=== PATIENT | male | born 1980 | race Two or more races ===

== ENCOUNTER 2017-11-12 07:15 | Emergency (ER) | payer OTHER ==
[2017-11-12 07:52] VITALS: TEMP 99; BMI 25.7
--- NOTE | 2017-11-12 07:58 | PDOC ---
Attending Attestation - Resident Resident Name: Lucinda Cerda - ED Attending Attestation I have performed the following: I have examined & evaluated the patient, The case was reviewed & discussed with the resident, I agree w/resident's findings & plan, Exceptions are as noted - HPI HPI: 11/12/17 08:01 37y M no pmhx presents with diarrhea. Pt recently came [place] from the [place] sun[place] vi[place]iting [place]), was fine until sun when he had some LLQ pain radiating to the back that resolved that day, thne he started having multiple episodes of watery green diarrhea marcie twas non bloody and nonmelanotic - no abd pain, fever/chills, nv. Pt notes that his son had similar sypmtoms in that has since resolved. GENERAL: The patient is awake, alert, and fully oriented, Nontoxic - in no acute distress. HEAD: Normocephalic, atraumatic. EYES: extraocular movements intact, sclera anicteric, conjunctiva clear. ENT: Normal voice, Moist mucous membranes. NECK: Normal range of motion, supple LUNGS: Breath sounds equal, clear to auscultation bilaterally. No wheezes, no rhonchi, no rales. HEART: Regular rate and rhythm, normal S1 and S2 without murmur, rub or gallop. ABDOMEN: Soft, nontender No guarding, no rebound. . No CVA tenderness EXTREMITIES: Normal range of motion, no edema. NEUROLOGICAL: No facial assymetry, Normal speech, PSYCH: Normal mood, normal affect. SKIN: Warm, Dry, normal turgor, - Medical Decision Making 11/12/17 08:43 suspect diarrhea, probable viral no systemic complaints abd soft nontender will ck labs fluids for hydration will ck ua to r/o kidney stone
--- NOTE | 2017-11-12 08:10 | PDOC ---
History of Present Illness - General Chief Complaint: Pain, Acute Stated Complaint: ABDOMINAL PAIN Time Seen by Provider: 11/12/17 07:50 - History of Present Illness Initial Comments: 11/12/17 08:05 37 year old man w a history of kidney stones who presents with watery nonbloody diarrhea after recent travel to the [place] and returning on . The patient notes that he initially had mid abdominal pain and back pain that resolved but now has had 4 days of diarrhea. He reports that his son has had diarrhea while in the [place] as well but the son's diarrhea has since resolved. The patient denies fevers, chest pain, shortness of breath, headache, and abdominal pain. PMHX: none PSHX: none Tob: none Etoh: none Meds: none Allergies: NKDA Past History - Past Medical History Allergies/Adverse Reactions: Allergies Allergy/AdvReac Type Severity Reaction Status Date / Time No Known Allergies Allergy Verified 11/12/17 08:11 COPD: No Kidney Stones: Yes - Surgical History Appendectomy: Yes - Immunization History Td Vaccination: No TDAP Vaccination: No Immunization Up to Date: No - Suicide/Smoking/Psychosocial Hx Smoking History: Never smoked Have you smoked in the past 12 months: No Hx Alcohol Use: No Drug/Substance Use Hx: No Substance Use Type: None Hx Substance Use Treatment: No Review of Systems - Review of Systems Able to Perform ROS?: Yes Is the patient limited Turkmen proficient: No Constitutional: No: Chills, Diaphoresis, Fever HEENTM: No: Blurred Vision, Tinnitus Respiratory: No: Cough, Orthopnea, Shortness of Breath Cardiac (ROS): No: Chest Pain, Palpitations, Chest Tightness ABD/GI: Yes: Diarrhea. No: Constipated, Nausea, Rectal Bleeding, Vomiting Musculoskeletal: No: Back Pain Neurological: No: Headache, Numbness, Paresthesia, Tingling *Physical Exam - Vital Signs Last Vital Signs Temp Pulse Resp BP Pulse Ox 99.0 F 74 18 130/82 0 L 11/12/17 07:42 11/12/17 07:42 11/12/17 07:42 11/12/17 07:42 11/12/17 07:42 - Physical Exam Comments: 11/12/17 08:14 GENERAL: Awake, alert, and fully oriented, in no acute distress HEAD: No signs of trauma, normocephalic, atraumatic EYES:EOMI, sclera anicteric, conjunctiva clear ENT: oropharynx clear without exudates. Moist mucosa NECK: Normal ROM, supple, no lymphadenopathy, JVD, or masses LUNGS: No distress, speaks full sentences, clear to auscultation bilaterally HEART: Regular rate and rhythm, normal S1 and S2, no murmurs, rubs or gallops, peripheral pulses normal and equal bilaterally. ABDOMEN: Soft, nontender to palpation, normoactive bowel sounds. No guarding, no rebound. No masses BACK: no CVA tenderness bilaterally EXTREMITIES : Normal inspection, Normal range of motion, no edema. No clubbing or cyanosis. NEUROLOGICAL: Normal speech, normal gait, no focal sensorimotor deficits SKIN: Warm, Dry, normal turgor, no rashes or lesions noted ED Treatment Course - LABORATORY CBC & Chemistry Diagram: 11/12/17 08:00 11/12/17 08:00 Medical Decision Making - Medical Decision Making 11/12/17 08:17 37 year old man w. past medical history of kidney stones who presents with watery nonbloody diarrhea after recent travel to the [place] and returning on 11/03/17. The patient's [place] had [place] The patient's symptoms and history are most concerning for traveller's diarrhea vs nephrolithiasis. 11/12/17 09:42 Patient was reassessed and found to be stable and feeling better at bedside. Patient informed of some blood in urine and given referral to PCP. He was given strict return precautions and agrees with plan. *DC/Admit/Observation/Transfer Diagnosis at time of Disposition: Travelers' diarrhea - Discharge Dispostion Disposition: HOME Condition at time of disposition: Stable Decision to Admit order: No - Referrals Referrals: [facility] [place] [Provider Group] - Patient Instructions Additional Instructions: You were seen in the ED for complaint of diarrhea. You were evaluated with labwork and treated symptomatically in the ED. You were informed of your lab results. You were given a referral to a PCP and advised to follow up with in 1-2 weeks. - Post Discharge Activity
[2017-11-12] MEDS ORDERED: SODIUM CHLORIDE 1,000 ML IV SCH (08:15)
[2017-11-12 08:16] LABS: BASO % 0.3 % (0-2.0); EOS % 1.5 % (0-4.5); HEMATOCRIT 45.8 % (35.4-49); LYMPH % 18.4 % (8-40); MCH 31.3 pg (25.7-33.7); MCHC 34.9 g/dl (32.0-35.9); MEAN CELL VOLUME 89.6 fl (80-96); MEAN PLT VOLUME 7.3 fl (7.5-11.1); MONO % 12.8 % (3.8-10.2); PLATELET COUNT 165 K/MM3 (134-434); RBC 5.11 M/mm3 (4.00-5.60); RDW 12.6 % (11.9-15.9); WHITE BLOOD COUNT 4.6 K/mm3 (4.0-10.0)
[2017-11-12 08:37] LABS: ALBUMIN 4.2 g/dl (3.4-5.0); ANION GAP 5 (8-16); BLOOD UREA NITROGEN 13 mg/dL (7-18); CHLORIDE 110 mmol/L (98-107); CO2 26 mmol/L (21-32); GLUCOSE,RANDOM 98 mg/dL (74-106); SODIUM 141 mmol/L (136-145)
[2017-11-12 08:41] LABS: BILIRUBIN,TOTAL 1.7 mg/dL (0.2-1.0); CREATININE 0.9 mg/dL (0.7-1.3); SGOT/AST 26 U/L (15-37); SGPT/ALT 56 U/L (12-78); TOT PROT 6.9 g/dl (6.4-8.2)
[2017-11-12 08:42] LABS: ALK PHOS 96 U/L (45-117)
[2017-11-12 08:55] LABS: URINE APPEARANCE CLEAR; URINE BILIRUBIN NEGATIVE (<2.0 mg/dL); URINE COLOR YELLOW; URINE GLUCOSE (UA) NEGATIVE (NEGATIVE); URINE KETONE NEGATIVE (NEGATIVE); URINE LEUK ESTERASE NEGATIVE (NEGATIVE); URINE NITRITE NEGATIVE (NEGATIVE); URINE PROTEIN NEGATIVE (NEGATIVE); URINE UROBILINOGEN NEGATIVE mg/dL (0.2-1.0)
[2017-11-12 09:00] LABS: URINE MUCUS RARE
[2017-11-12 10:04] VITALS: BP 110/70; PULSE 50
== END 2017-11-12 10:04 | disposition home or self-care (01) ==
LOC: JER 07:15
PROC: 3E0337Z Introduction of Electrolytic and Water Balance Substance into Peripheral Vein, Percutaneous Approach (ICD-10-PCS; principal; 2017-11-12)
DX: A09 Infectious gastroenteritis and colitis, unspecified (principal)
CPT/HCPCS: 36415; 80053; 81003; 81015; 85025; 87086; 99284-25; J7030

== ENCOUNTER 2018-04-23 20:19 | Emergency (ER) | payer OTHER ==
--- NOTE | 2018-04-23 20:41 | PDOC ---
Rapid Medical Evaluation Chief Complaint: Pain, Acute Time Seen by Provider: 04/23/18 20:39 Medical Evaluation: Allergies Allergy/AdvReac Type Severity Reaction Status Date / Time No Known Allergies Allergy Verified 11/12/17 08:11 04/23/18 20:40 I performed a brief in person evaluation. CC: Left flank pain HPI: Pt is a 38 Yo male with a hx of kidney stones and began with left flank pain x 1 day. PE: Skin: Clear Lungs: Clear Heart: RRR MS: Moves all extremities without difficulty Neuro: Alert Psych: Appropriate affect Basic labs ordered with urine Pt will go to main ED for further evaluation. Discharge Disposition - Diagnosis Kidney stone on left side - Referrals - Patient Instructions - Post Discharge Activity
[2018-04-23 20:42] VITALS: BP 145/89; PULSE 79; TEMP 98.9; BMI 29.5
[2018-04-23 21:07] LABS: BASO % 0.4 % (0-2.0); EOS % 1.6 % (0-4.5); HEMATOCRIT 43.7 % (35.4-49); HEMOGLOBIN 15.6 GM/dL (11.7-16.9); LYMPH % 37.3 % (8-40); MCH 31.8 pg (25.7-33.7); MCHC 35.7 g/dl (32.0-35.9); MEAN CELL VOLUME 88.9 fl (80-96); MEAN PLT VOLUME 7.5 fl (7.5-11.1); MONO % 7.2 % (3.8-10.2); NEUT % 53.5 % (42.8-82.8); PLATELET COUNT 212 K/MM3 (134-434); RBC 4.91 M/mm3 (4.00-5.60); RDW 12.5 % (11.9-15.9); WHITE BLOOD COUNT 5.3 K/mm3 (4.0-10.0)
[2018-04-23 21:26] LABS: ALBUMIN 4.1 g/dl (3.4-5.0); ALK PHOS 123 U/L (45-117); ANION GAP 8 MMOL/L (8-16); BILIRUBIN,TOTAL 0.9 mg/dL (0.2-1); BLOOD UREA NITROGEN 17 mg/dL (7-18); CALCIUM 9.1 mg/dL (8.5-10.1); CHLORIDE 107 mmol/L (98-107); CO2 26 mmol/L (21-32); CREATININE 0.9 mg/dL (0.55-1.3); GLUCOSE,RANDOM 126 mg/dL (74-106); POTASSIUM 3.8 mmol/L (3.5-5.1); SGOT/AST 32 U/L (15-37); SGPT/ALT 59 U/L (13-61); SODIUM 141 mmol/L (136-145); TOT PROT 6.8 g/dl (6.4-8.2)
[2018-04-23] MEDS ORDERED: ONDANSETRON 4 MG/2 ML VIAL IVPUSH ONE (21:33)
--- NOTE | 2018-04-23 21:38 | PDOC ---
History of Present Illness - General History Source: Patient Exam Limitations: No Limitations - History of Present Illness Initial Comments: 04/23/18 22:03 The patient is a 38 year old male, with a significant past medical history of kidney stones (s/p ureteral stent and lithotripsy), who presents to the emergency department with, left sided flank pain radiating to the groin with associated nausea without emesis. Patient notes a similar episode in November due to a kidney stone. He endorses taking oxycodone without relief, prompting his visit to the ER. While in the ER, the patient notes he think he passed something in his urine. He denies any recent fevers, chills, headache or dizziness. He denies any recent vomit, diarrhea or constipation. He denies any recent chest pain or shortness of breath. He denies any recent dysuria, frequency, urgency or hematuria. Allergies: NKDA Past surgical history: Appendectomy. Social History: Nonsmoker. Denies EtOH use and recreational drug use. <Ray Dominguez - Last Filed: 04/23/18 22:03> <Prudence Pierre - Last Filed: 04/23/18 23:34> - General Chief Complaint: Pain, Acute Stated Complaint: PAIN Time Seen by Provider: 04/23/18 20:39 Past History <Ray Dominguez - Last Filed: 04/23/18 22:03> - Past Medical History COPD: No Kidney Stones: Yes - Surgical History Appendectomy: Yes - Immunization History Td Vaccination: No TDAP Vaccination: No Immunization Up to Date: No - Suicide/Smoking/Psychosocial Hx Smoking History: Never smoked Have you smoked in the past 12 months: No Information on smoking cessation initiated: No Hx Alcohol Use: No Drug/Substance Use Hx: No Substance Use Type: None Hx Substance Use Treatment: No <Prudence Pierre - Last Filed: 04/23/18 23:34> - Past Medical History Allergies/Adverse Reactions: Allergies Allergy/AdvReac Type Severity Reaction Status Date / Time No Known Allergies Allergy Verified 04/23/18 20:42 Review of Systems - Review of Systems Able to Perform ROS?: Yes Comments:: 04/23/18 22:10 CONSTITUTIONAL: Absent: fever, no chills, no fatigue EYES: Absent: visual changes ENT: Absent: ear pain, no sore throat CARDIOVASCULAR: Absent: chest pain, no palpitations RESPIRATORY: Absent: cough, no SOB GI: Present: Nausea. Absent: no vomiting, no constipation, no diarrhea GENITOURINARY: Present: Left flank pain radiating to the groin. Absent: dysuria, no frequency, no hematuria MUSKULOSKELETAL: Absent: back pain, no arthralgia, no myalgia SKIN: Absent: rash NEURO: Absent: headache <Ray Dominguez - Last Filed: 04/23/18 22:03> *Physical Exam - Vital Signs Last Vital Signs Temp Pulse Resp BP Pulse Ox 98.9 F 79 18 145/89 96 04/23/18 20:40 04/23/18 20:40 04/23/18 20:40 04/23/18 20:40 04/23/18 20:40 - Physical Exam Comments: 04/23/18 22:11 GENERAL: Well-appearing, well-nourished. No apparent distress. HEENT: Normocephalic, atraumatic. PERRL, EOM intact. CARDIOVASCULAR: Normal S1, S2. Regular rate and rhythm. PULMONARY: Clear to auscultation bilaterally. +ABDOMEN/BACK: Left back pain radiating to the flank. Soft, non-distended. EXTREMITIES: Normal ROM in all four extremities. No gross deformities. SKIN: Warm, dry. No rash NEUROLOGICAL: No focal neurological deficits. <Ray Dominguez - Last Filed: 04/23/18 22:03> - Vital Signs Last Vital Signs Temp Pulse Resp BP Pulse Ox 98.9 F 79 18 145/89 96 04/23/18 20:40 04/23/18 20:40 04/23/18 20:40 04/23/18 20:40 04/23/18 20:40 <Prudence Pierre - Last Filed: 04/23/18 23:34> Moderate Sedation - Procedure Monitoring Vital Signs: Procedure Monitoring Vital Signs Temperature 98.9 F 04/23/18 20:40 Pulse Rate 79 04/23/18 20:40 Respiratory Rate 18 04/23/18 20:40 Blood Pressure 145/89 04/23/18 20:40 O2 Sat by Pulse Oximetry (%) 96 04/23/18 20:40 <Ray Dominguez - Last Filed: 04/23/18 22:03> - Procedure Monitoring Vital Signs: Procedure Monitoring Vital Signs Temperature 98.9 F 04/23/18 20:40 Pulse Rate 79 04/23/18 20:40 Respiratory Rate 18 04/23/18 20:40 Blood Pressure 145/89 04/23/18 20:40 O2 Sat by Pulse Oximetry (%) 96 04/23/18 20:40 <Prudence Pierre - Last Filed: 04/23/18 23:34> ED Treatment Course - LABORATORY CBC & Chemistry Diagram: 04/23/18 20:50 04/23/18 20:50 - ADDITIONAL ORDERS Additional order review: Laboratory Results 04/23/18 20:50 Sodium 141 Potassium 3.8 Chloride 107 Carbon Dioxide 26 Anion Gap 8 BUN 17 Creatinine 0.9 Creat Clearance w eGFR > 60 Random Glucose 126 H Calcium 9.1 Total Bilirubin 0.9 AST 32 ALT 59 Alkaline Phosphatase 123 H Total Protein 6.8 Albumin 4.1 04/23/18 20:50 RBC 4.91 MCV 88.9 MCHC 35.7 RDW 12.5 MPV 7.5 Neutrophils % 53.5 D Lymphocytes % 37.3 D Monocytes % 7.2 Eosinophils % 1.6 Basophils % 0.4 <Ray Dominguez - Last Filed: 04/23/18 22:03> - LABORATORY CBC & Chemistry Diagram: 04/23/18 20:50 04/23/18 20:50 - ADDITIONAL ORDERS Additional order review: Laboratory Results 04/23/18 20:50 Sodium 141 Potassium 3.8 Chloride 107 Carbon Dioxide 26 Anion Gap 8 BUN 17 Creatinine 0.9 Creat Clearance w eGFR > 60 Random Glucose 126 H Calcium 9.1 Total Bilirubin 0.9 AST 32 ALT 59 Alkaline Phosphatase 123 H Total Protein 6.8 Albumin 4.1 04/23/18 20:50 RBC 4.91 MCV 88.9 MCHC 35.7 RDW 12.5 MPV 7.5 Neutrophils % 53.5 D Lymphocytes % 37.3 D Monocytes % 7.2 Eosinophils % 1.6 Basophils % 0.4 <Prudence Pierre - Last Filed: 04/23/18 23:34> Medical Decision Making - Medical Decision Making 04/23/18 22:17 38-year-old male with a history of kidney stones presents with left flank pain that started on Sunday become much worse this evening. He is able to urinate and denies fever or vomiting. CBC is within normal limits with no evidence of anemia, leukocytosis Chemistries unremarkable with exception of a glucose slightly elevated at 126 Renal ultrasound showed a left nephrolithiasis with no evidence of hydronephrosis or obstructive uropathy. Patient is able to urinate 04/23/18 22:45 Patient saw a stone in his urine sample and the nurse strained the urine and found a 4 mm kidney stone 04/23/18 23:16 imp Flank pain resolved/kidney stones/recently passed, patiejnt discharged home <Prudence Pierre - Last Filed: 04/23/18 23:34> *DC/Admit/Observation/Transfer - Attestations Scribe Attestion: 04/23/18 22:12 Documentation prepared by Ray Dominguez, acting as medical billing service for Prudence Pierre MD. <Ray Dominguez - Last Filed: 04/23/18 22:03> <Prudence Pierre - Last Filed: 04/23/18 23:34> Diagnosis at time of Disposition: Kidney stone on left side - Discharge Dispostion Disposition: HOME Condition at time of disposition: Stable - Referrals Referrals: Joe Oliav MD [Staff Physician] - Aaron Rios MD [Staff Physician] - - Patient Instructions Printed Discharge Instructions: DI for Kidney Stones Additional Instructions: You passed a kidney stone. There are stones in the kidney and you should see a urologist if you develop further symptoms.
[2018-04-23] MEDS ORDERED: ONDANSETRON 4 MG/2 ML VIAL ONE (22:45)
[2018-04-23 23:01] LABS: URINE APPEARANCE SLCLOUDY; URINE BILIRUBIN NEGATIVE (<2.0 mg/dL); URINE COLOR YELLOW; URINE GLUCOSE (UA) NEGATIVE (NEGATIVE); URINE KETONE NEGATIVE (NEGATIVE); URINE LEUK ESTERASE NEGATIVE (NEGATIVE); URINE NITRITE NEGATIVE (NEGATIVE); URINE PROTEIN 2+ (NEGATIVE)
[2018-04-23 23:21] LABS: CALCIUM OXALATE CRYSTALS FEW /hpf (NONE SEEN); EPI CELLS RARE /HPF (FEW); URINE MUCUS FEW
== END 2018-04-24 00:07 | disposition home or self-care (01) ==
LOC: JER 20:19
DX: N20.0 Calculus of kidney (principal); Z87.442 Personal history of urinary calculi
CPT/HCPCS: 36415; 76775-TC; 80053; 81003; 81015; 85025; 87086; 99282-25

== ENCOUNTER 2019-05-10 05:14 | Emergency (ER) | payer OTHER ==
[2019-05-10 05:43] VITALS: BMI 28.3
[2019-05-10] MEDS ORDERED: ACETAMINOPHEN 325 MG TABLET (FP) ONE (05:50)
[2019-05-10] MEDS ORDERED: ACETAMINOPHEN 500 MG TABLET (FP) PO ONE (07:17)
[2019-05-10] MEDS ORDERED: KETOROLAC TROMETHAMINE 30 MG/1 ML VIAL IM ONE (07:25)
[2019-05-10] MEDS ORDERED: DEXAMETHASONE SOD PHOSPHATE 10 MG/1 ML VIAL IM ONE (07:25)
[2019-05-10] MEDS ORDERED: KETOROLAC TROMETHAMINE 30 MG/1 ML VIAL ONE (07:40)
[2019-05-10] MEDS ORDERED: DEXAMETHASONE SOD PHOSPHATE 10 MG/1 ML VIAL ONE (07:40)
--- NOTE | 2019-05-10 08:26 | PDOC ---
History of Present Illness - General Chief Complaint: Sore Throat Stated Complaint: SORE THROAT Time Seen by Provider: 05/10/19 07:06 History Source: Patient Exam Limitations: No Limitations - History of Present Illness Initial Comments: 05/10/19 08:25 Patient is a 39M with history of urolithiasis s/p stenting here today complaining of fever, bodyaches, rhinorrhea, sore throat and cough. Patient endorses multiple sick contacts in family, no known diagnosis for any of them. Patient denies chest pain, shortness of breath, abdominal pain, dysuria. Fully vaccinated as child. No foreign travel. Patient's main concern is that his throat is very sore when he coughs. Past History - Past Medical History Allergies/Adverse Reactions: Allergies Allergy/AdvReac Type Severity Reaction Status Date / Time No Known Allergies Allergy Verified 05/10/19 05:42 Home Medications: Ambulatory Orders NK [No Known Home Medication] 05/10/19 COPD: No Kidney Stones: Yes - Surgical History Appendectomy: Yes - Immunization History Td Vaccination: No TDAP Vaccination: No Immunization Up to Date: Yes - Psycho Social/Smoking Cessation Hx Smoking History: Never smoked Have you smoked in the past 12 months: No Information on smoking cessation initiated: No Hx Alcohol Use: No Drug/Substance Use Hx: No Substance Use Type: None Hx Substance Use Treatment: No Review of Systems - Review of Systems Able to Perform ROS?: Yes Comments:: 05/10/19 08:38 GENERAL/CONSTITUTIONAL: +fever +chills. No weakness. HEAD, EYES, EARS, NOSE AND THROAT: No change in vision. + sore throat. CARDIOVASCULAR: No chest pain or shortness of breath RESPIRATORY: +cough, no wheezing, or hemoptysis. GASTROINTESTINAL: No nausea, vomiting, diarrhea or constipation. GENITOURINARY: No dysuria, frequency, or change in urination. MUSCULOSKELETAL: No joint or muscle swelling or pain. No neck or back pain. SKIN: No rash NEUROLOGIC: No headache, vertigo, loss of consciousness, or change in strength/ sensation. ENDOCRINE: No increased thirst. No abnormal weight change ALLERGIC/IMMUNOLOGIC: No hives or skin allergy. *Physical Exam - Vital Signs Last Vital Signs Temp Pulse Resp BP Pulse Ox 102.6 F H 102 H 22 H 112/67 96 05/10/19 07:05 05/10/19 07:05 05/10/19 07:05 05/10/19 07:05 05/10/19 07:05 - Physical Exam 05/10/19 08:40 GENERAL: Awake, alert, and fully oriented, in no acute distress HEAD: No signs of trauma, normocephalic, atraumatic EYES: PERRLA, EOMI, sclera anicteric, conjunctiva clear ENT: Auricles normal inspection, hearing grossly normal, nares patent, oropharynx erythematous without exudates. NECK: Normal ROM, supple, no lymphadenopathy, JVD, or masses LUNGS: No distress, speaks full sentences, clear to auscultation bilaterally HEART: Regular rate and rhythm, normal S1 and S2, no murmurs, rubs or gallops, peripheral pulses normal and equal bilaterally. ABDOMEN: Soft, nontender, normoactive bowel sounds. No guarding, no rebound. No masses EXTREMITIES: Normal inspection, Normal range of motion, no edema. No clubbing or cyanosis. NEUROLOGICAL: Cranial nerves II through XII grossly intact. Normal speech, normal gait, no focal sensorimotor deficits SKIN: Warm, Dry, normal turgor, no rashes or lesions noted. ED Treatment Course - Medications Given in the ED: ED Medications Discontinued Medications Generic Name Dose Route Start Last Admin Trade Name Freq PRN Reason Stop Dose Admin Acetaminophen 975 mg 05/10/19 07:17 05/10/19 06:30 Tylenol - PO 05/10/19 07:18 975 mg ONCE ONE Administration Dexamethasone Sodium Phosphate 10 mg 05/10/19 07:25 05/10/19 07:44 Decadron Injection - IM 05/10/19 07:26 10 mg ONCE ONE Administration Ketorolac Tromethamine 30 mg 05/10/19 07:25 05/10/19 07:44 Toradol Injection - IM 05/10/19 07:26 30 mg ONCE ONE Administration Medical Decision Making - Medical Decision Making 05/10/19 08:40 Patient is 39M here today with flu-like symptoms. Vitals notable for fever and tachycardia, patient is non-toxic appearing. Flu positive. Given tylenol and toradol for fever and bodyaches. Given dexamethasone for sore throat. Patient has improved. Vitals improved. Will discharge home with return precautions. Discharge - Discharge Information Problems reviewed: Yes Clinical Impression/Diagnosis: Influenza B Condition: Improved Disposition: HOME - Admission No - Follow up/Referral - Patient Discharge Instructions Patient Printed Discharge Instructions: DI for Influenza -- Adult Additional Instructions: Please return if you have any new, worsening or concerning symptoms, especially difficulty breathing. Please follow up with your primary care doctor this week. - Post Discharge Activity Work/Back to School Note: Back to Work
--- NOTE | 2019-05-10 08:35 | PDOC ---
Attending Attestation - Resident Resident Name: Ignacio Arias - ED Attending Attestation I have performed the following: I have examined & evaluated the patient, The case was reviewed & discussed with the resident, I agree w/resident's findings & plan, Exceptions are as noted - HPI HPI: 05/10/19 08:37 39yo male with sore throat, rhinorrhea, body aches x 4 days. Fevers and chills. Pt denies n/v/d or abd pain. Pt states he did not get the flu vaccine this year. - Physicial Exam PE: 05/10/19 08:38 Gen: aaox3, febrile, tachy heent: rhinorrhea, erythema to posterior pharynx lungs: cta b/l heart: +s1s2 tachy abd: soft, nt/nd +bs ext: no c/c/e - Medical Decision Making 05/10/19 08:38 a/p: 39yo male with rhinorrhea, sore throat, fevers -pt with flu like symptoms -pt febrile -tylenol give, will also give toradol, decadron for sore throat -pt flu B + -strep neg -no foreign travel -pt works at a [employer] -4 days into symptoms -needs fever control, po intake -pt is not a candidate for tamiflu given duration of symptoms -will need work note -repeat vs after tylenol, toradol, decadron, no longer tachy or febrile -stable for dc to home -discussed prevention precautions at home to stop spread of flu
[2019-05-10 08:40] VITALS: BP 100/63; PULSE 86; TEMP 100
== END 2019-05-10 08:57 | disposition home or self-care (01) ==
LOC: JER 05:14
PROC: 3E0233Z Introduction of Anti-inflammatory into Muscle, Percutaneous Approach (ICD-10-PCS; principal; 2019-05-10)
PROC: 3E0233Z Introduction of Anti-inflammatory into Muscle, Percutaneous Approach (ICD-10-PCS; 2019-05-10)
DX: J10.1 Influenza due to other identified influenza virus with other respiratory manifestations (principal); Z87.442 Personal history of urinary calculi; Z96.0 Presence of urogenital implants
CPT/HCPCS: 87070; 87804; 87880; 99283-25; J1100

== ENCOUNTER 2022-04-22 00:13 | Emergency (ER) | payer OTHER ==
[2022-04-22] MEDS ORDERED: TAMSULOSIN HCL 0.4 MG CAP PO ONE (00:21)
[2022-04-22] MEDS ORDERED: IBUPROFEN 600 MG TABLET (FP) PO ONE ×2 (00:21→00:32)
[2022-04-22 00:25] VITALS: BP 121/84; PULSE 60; RESP 16; TEMP 98.5; BMI 35.5
[2022-04-22] MEDS ORDERED: TAMSULOSIN HCL 0.4 MG CAP ONE (00:32)
[2022-04-22 01:34] LABS: EPI CELLS 5 /uL (0-25.1); HYALINE CASTS 1 /uL (0-3.1); PH,URINE 5.5 (5.0-8.0); URINE APPEARANCE CLEAR; URINE BACTERIA 14 /uL (0-1359); URINE BILIRUBIN NEGATIVE (NEGATIVE); URINE COLOR YELLOW; URINE GLUCOSE (UA) NEGATIVE (NEGATIVE); URINE KETONE NEGATIVE (NEGATIVE); URINE LEUK ESTERASE NEGATIVE (NEGATIVE); URINE NITRITE NEGATIVE (NEGATIVE); URINE PROTEIN NEGATIVE (NEGATIVE); URINE RBC 850 /uL (0-23.9); URINE UROBILINOGEN 0.2 mg/dL (0.2-1.0); URINE WBC 6 /uL (0-25.8)
== END 2022-04-22 02:04 | disposition home or self-care (01) ==
LOC: FER 00:13
DX: N20.1 Calculus of ureter (principal); N23 Unspecified renal colic
CPT/HCPCS: 74176-TC; 81003; 99285-25

== ENCOUNTER 2023-01-29 20:38 | Emergency (ER) | payer OTHER ==
[2023-01-29] MEDS ORDERED: KETOROLAC TROMETHAMINE 60 MG/2 ML VIAL IM ONE (21:35)
[2023-01-29 21:43] VITALS: TEMP 98; BMI 32.3
[2023-01-29 21:48] LABS: HEMATOCRIT 45.9 % (35.4-49); HEMOGLOBIN 15.8 G/dL (11.7-16.9); MCH 32.2 pg (25.7-33.7); MCHC 34.4 g/dl (32.0-35.9); MEAN CELL VOLUME 93.6 fl (80-96); MEAN PLT VOLUME 7.3 fl (7.5-11.1); PLATELET COUNT 163.3 10^3/uL (134-434); RDW 13.1 % (11.9-15.9); WHITE BLOOD COUNT 5.6 10^3/uL (4.0-10.8)
[2023-01-29 23:04] LABS: POTASSIUM 3.8 mmol/L (3.5-5.1)
[2023-01-29 23:05] LABS: CALCIUM 8.7 mg/dL (8.5-10.1)
[2023-01-29 23:06] LABS: ALBUMIN 3.8 g/dl (3.4-5.0); BLOOD UREA NITROGEN 16.1 mg/dL (7-18)
[2023-01-29 23:09] LABS: CREATININE 1.2 mg/dL (0.55-1.3)
[2023-01-29 23:10] LABS: BILIRUBIN,TOTAL 1.1 mg/dL (0.2-1)
[2023-01-29 23:11] LABS: TOT PROT 6.3 g/dl (6.4-8.2)
[2023-01-29] MEDS ORDERED: KETOROLAC TROMETHAMINE 60 MG/2 ML VIAL ONE (23:56)
[2023-01-30 00:01] VITALS: BP 127/87; PULSE 65; RESP 16
== END 2023-01-30 00:05 | disposition home or self-care (01) ==
LOC: FER 20:38
DX: G44.209 Tension-type headache, unspecified, not intractable (principal); R53.1 Weakness; R45.7 State of emotional shock and stress, unspecified
CPT/HCPCS: 36415; 70450-TC; 80053; 85027; 99284-25

== ENCOUNTER 2025-02-08 14:03 | Emergency (ER) | payer BC ==
[2025-02-08 14:34] VITALS: BP 131/84; PULSE 63; RESP 18; TEMP 98.6; BMI 26.1
== END 2025-02-08 15:06 | disposition home or self-care (01) ==
LOC: FER 14:03
DX: S86.912A Strain of unspecified muscle(s) and tendon(s) at lower leg level, left leg, initial encounter (principal); X50.1XXA Overexertion from prolonged static or awkward postures, initial encounter; Y93.66 Activity, soccer
CPT/HCPCS: 99282-25